=== PATIENT | female | born 1995 | race Caucasian/White ===

== ENCOUNTER 2022-02-26 19:44 | Emergency (ER) | payer OTHER ==
[2022-02-26 19:50] VITALS: BP 114/79; TEMP 100.2; BMI 20.5
[2022-02-26] MEDS ORDERED: ACETAMINOPHEN 500 MG TABLET (FP) PO ONE (22:20)
[2022-02-26] MEDS ORDERED: ACETAMINOPHEN 500 MG TABLET (FP) ONE (22:21)
[2022-02-26] MEDS ORDERED: KETOROLAC TROMETHAMINE 30 MG/1 ML VIAL IVPUSH ONE (22:39)
[2022-02-26] MEDS ORDERED: SODIUM CHLORIDE 0.9% 500 ML INFUS.BAG IV ONE (22:39)
[2022-02-26] MEDS ORDERED: METOCLOPRAMIDE HCL INJECTION 10 MG/2 ML VIAL IVPUSH ONE (22:39)
[2022-02-26] MEDS ORDERED: METOCLOPRAMIDE HCL INJECTION 10 MG/2 ML VIAL ONE (22:47)
[2022-02-26] MEDS ORDERED: KETOROLAC TROMETHAMINE 30 MG/1 ML VIAL ONE (22:47)
[2022-02-27 00:40] VITALS: PULSE 80
== END 2022-02-27 00:31 | disposition home or self-care (01) ==
LOC: JER 19:44
PROC: 3E033GC Introduction of Other Therapeutic Substance into Peripheral Vein, Percutaneous Approach (ICD-10-PCS; principal; 2022-02-26)
PROC: 3E0337Z Introduction of Electrolytic and Water Balance Substance into Peripheral Vein, Percutaneous Approach (ICD-10-PCS; 2022-02-26)
PROC: 3E033GC Introduction of Other Therapeutic Substance into Peripheral Vein, Percutaneous Approach (ICD-10-PCS; 2022-02-26)
DX: R51.9 Headache, unspecified (principal); J06.9 Acute upper respiratory infection, unspecified
CPT/HCPCS: 0241U-QW; 99284-25

== ENCOUNTER 2023-07-26 21:37 | Inpatient (IN) | payer OTHER ==
[2023-07-26 21:44] VITALS: BMI 22.8
[2023-07-26] MEDS ORDERED: SODIUM CHLORIDE 0.9% 500 ML INFUS.BAG IV ONE (23:11)
[2023-07-26] MEDS ORDERED: ACETAMINOPHEN 1000 MG/100 ML BAG IVPB ONE (23:11)
[2023-07-27] MEDS ORDERED: valACYclovir HCL 500 MG TABLET (FP) PO ONE (00:35)
[2023-07-27 00:55] LABS: BASO % 0.3 % (0-2.0); EOS % 0.1 % (0-4.5); LYMPH % 8.8 % (8-40); MCH 27.5 pg (25.7-33.7); MCHC 34.3 g/dl (32.0-36.0); MEAN CELL VOLUME 80.1 fl (80-96); MEAN PLT VOLUME 8.9 fl (7.5-11.1); MONO % 6.7 % (3.8-10.2); NEUT % 84.1 % (42.8-82.8); PLATELET COUNT 276 10^3/uL (134-434); RBC 4.74 M/mm3 (3.60-5.2); RDW 13.2 % (11.6-15.6); WHITE BLOOD COUNT 13.2 K/mm3 (4.0-10.0)
[2023-07-27 00:56] LABS: EPI CELLS 5 /uL (0-25.1); HYALINE CASTS 8 /uL (0-3.1); URINE APPEARANCE CLEAR; URINE BACTERIA 2222 /uL (0-1359); URINE BILIRUBIN NEGATIVE (NEGATIVE); URINE COLOR YELLOW; URINE GLUCOSE (UA) NEGATIVE (NEGATIVE); URINE KETONE NEGATIVE (NEGATIVE); URINE LEUK ESTERASE 3+ (NEGATIVE); URINE NITRITE NEGATIVE (NEGATIVE); URINE PROTEIN 1+ (NEGATIVE); URINE RBC 301 /uL (0-23.9); URINE UROBILINOGEN 0.2 mg/dL (0.2-1.0); URINE WBC 987 /uL (0-25.8)
[2023-07-27 01:04] LABS: INR 1.05 (0.83-1.09); PROTHROMBIN TIME (PATIENT) 12.2 SEC (9.7-13.0)
[2023-07-27 01:07] LABS: ACTIVATED PTT 30.3 SECONDS (25.2-36.5)
[2023-07-27 01:12] LABS: POTASSIUM 4.1 mmol/L (3.5-5.1)
[2023-07-27 01:14] LABS: BLOOD UREA NITROGEN 4.3 mg/dL (7-18); CALCIUM 9.1 mg/dL (8.5-10.1); MAGNESIUM 2.1 mg/dL (1.8-2.4)
[2023-07-27 01:15] LABS: ALBUMIN 3.8 g/dl (3.4-5.0)
[2023-07-27] MEDS ORDERED: valACYclovir HCL 500 MG TABLET (FP) ONE (01:15)
[2023-07-27 01:17] LABS: CREATININE 0.6 mg/dL (0.55-1.3)
[2023-07-27 01:19] LABS: BILIRUBIN,TOTAL 0.6 mg/dL (0.2-1); TOT PROT 7.2 g/dl (6.4-8.2)
[2023-07-27] MEDS ORDERED: CEFTRIAXONE 1 GM in DEXTROSE 5%-WATER - 50 ML IVPB ONE (02:33)
[2023-07-27] MEDS ORDERED: CEFTRIAXONE 1 GM/50 ML BAG ONE ×2 (03:24→11:18)
[2023-07-27] MEDS ORDERED: ACETAMINOPHEN 1000 MG/100 ML BAG IVPB PRN (06:49)
[2023-07-27 08:20] LABS: HEMATOCRIT 38.8 % (32.4-45.2); HEMOGLOBIN 13.2 GM/dL (10.7-15.3); MCH 27.6 pg (25.7-33.7); MEAN PLT VOLUME 9.1 fl (7.5-11.1); PLATELET COUNT 263 10^3/uL (134-434); RBC 4.79 M/mm3 (3.60-5.2); RDW 13.3 % (11.6-15.6); WHITE BLOOD COUNT 10.5 K/mm3 (4.0-10.0)
[2023-07-27 09:04] LABS: POTASSIUM 3.9 mmol/L (3.5-5.1)
[2023-07-27 09:05] LABS: CALCIUM 9.1 mg/dL (8.5-10.1)
[2023-07-27 09:06] LABS: BLOOD UREA NITROGEN 3.3 mg/dL (7-18)
[2023-07-27 09:09] LABS: PHOSPHOROUS 3.5 mg/dL (2.5-4.9)
[2023-07-27 09:10] LABS: CREATININE 0.6 mg/dL (0.55-1.3)
[2023-07-27] MEDS ORDERED: metroNIDAZOLE 0.75% TOPICAL GEL 45 GM TUBE TP SCH (10:00)
[2023-07-27] MEDS: valACYclovir HCL 500 MG TABLET (FP) PO SCH ×2 (11:34→22:46)
[2023-07-27] MEDS: ENOXAPARIN NA (PORCINE) 40 MG/0.4 ML DISP.SYRIN SQ SCH (11:34)
[2023-07-27] MEDS: metroNIDAZOLE 250 MG TABLET PO SCH ×2 (11:34→22:45)
[2023-07-27 11:53] LABS: SYPHILIS W/ RPR CONF NON-REACTIVE (NONREACTIVE)
[2023-07-27 12:23] LABS: HIV INTERPRETATION NEGATIVE (NEGATIVE)
[2023-07-27] MEDS: DOXYCYCLINE INJECTION 100 MG in DEXTROSE 5%-WATER 100 ML IVPB SCH (22:47)
[2023-07-28] MEDS ORDERED: CEFTRIAXONE 1 GM in DEXTROSE 5%-WATER - 50 ML IVPB SCH (06:00)
[2023-07-28] MEDS: valACYclovir HCL 500 MG TABLET (FP) PO SCH ×3 (07:06→21:25)
[2023-07-28 09:40] LABS: BASO % 0.3 % (0-2.0); EOS % 0.9 % (0-4.5); HEMATOCRIT 39.9 % (32.4-45.2); HEMOGLOBIN 13.4 GM/dL (10.7-15.3); LYMPH % 23.7 % (8-40); MCH 27.5 pg (25.7-33.7); MCHC 33.7 g/dl (32.0-36.0); MEAN CELL VOLUME 81.7 fl (80-96); MEAN PLT VOLUME 9.1 fl (7.5-11.1); MONO % 10.7 % (3.8-10.2); NEUT % 64.4 % (42.8-82.8); PLATELET COUNT 275 10^3/uL (134-434); RBC 4.88 M/mm3 (3.60-5.2); RDW 13.2 % (11.6-15.6); WHITE BLOOD COUNT 6.8 K/mm3 (4.0-10.0)
[2023-07-28 09:44] LABS: POTASSIUM 4.4 mmol/L (3.5-5.1)
[2023-07-28 09:48] LABS: ALBUMIN 3.6 g/dl (3.4-5.0)
[2023-07-28 09:49] LABS: BLOOD UREA NITROGEN 6.8 mg/dL (7-18); CALCIUM 9.1 mg/dL (8.5-10.1)
[2023-07-28 09:52] LABS: CREATININE 0.6 mg/dL (0.55-1.3)
[2023-07-28 09:53] LABS: BILIRUBIN,TOTAL 0.4 mg/dL (0.2-1); TOT PROT 7.2 g/dl (6.4-8.2)
[2023-07-28] MEDS: metroNIDAZOLE 250 MG TABLET PO SCH ×2 (10:01→21:25)
[2023-07-28] MEDS: DOXYCYCLINE INJECTION 100 MG in DEXTROSE 5%-WATER 100 ML IVPB SCH ×2 (10:01→21:24)
[2023-07-28] MEDS: CEFTRIAXONE 2 GM in DEXTROSE 5%-WATER 100 ML IVPB SCH (10:01)
[2023-07-28] MEDS: ENOXAPARIN NA (PORCINE) 40 MG/0.4 ML DISP.SYRIN SQ SCH ×2 (10:01→10:11)
[2023-07-29] MEDS: valACYclovir HCL 500 MG TABLET (FP) PO SCH ×3 (05:39→22:33)
[2023-07-29 09:36] LABS: BASO % 0.4 % (0-2.0); EOS % 0.7 % (0-4.5); HEMOGLOBIN 14.6 GM/dL (10.7-15.3); LYMPH % 26.4 % (8-40); MCH 28.5 pg (25.7-33.7); MCHC 35.7 g/dl (32.0-36.0); MEAN CELL VOLUME 79.9 fl (80-96); MONO % 8.1 % (3.8-10.2); NEUT % 64.4 % (42.8-82.8); PLATELET COUNT 283 10^3/uL (134-434); RBC 5.13 M/mm3 (3.60-5.2); RDW 13.8 % (11.6-15.6); WHITE BLOOD COUNT 7.5 K/mm3 (4.0-10.0)
[2023-07-29] MEDS: ENOXAPARIN NA (PORCINE) 40 MG/0.4 ML DISP.SYRIN SQ SCH (09:48)
[2023-07-29] MEDS: DOXYCYCLINE INJECTION 100 MG in DEXTROSE 5%-WATER 100 ML IVPB SCH (09:48)
[2023-07-29] MEDS: CEFTRIAXONE 2 GM in DEXTROSE 5%-WATER 100 ML IVPB SCH (09:48)
[2023-07-29] MEDS: metroNIDAZOLE 250 MG TABLET PO SCH ×2 (09:48→22:33)
[2023-07-29 09:56] LABS: POTASSIUM 4.1 mmol/L (3.5-5.1)
[2023-07-29 10:44] LABS: BLOOD UREA NITROGEN 6.8 mg/dL (7-18); CALCIUM 9.5 mg/dL (8.5-10.1); MAGNESIUM 2.1 mg/dL (1.8-2.4)
[2023-07-29 10:45] LABS: ALBUMIN 3.6 g/dl (3.4-5.0)
[2023-07-29 10:48] LABS: CREATININE 0.6 mg/dL (0.55-1.3)
[2023-07-29 10:49] LABS: BILIRUBIN,TOTAL 0.7 mg/dL (0.2-1); TOT PROT 7.3 g/dl (6.4-8.2)
[2023-07-29] MEDS: ERTAPENEM SODIUM 1 GM in SODIUM CHLORIDE 50 ML IVPB SCH (12:30)
[2023-07-30] MEDS: valACYclovir HCL 500 MG TABLET (FP) PO SCH (06:03)
[2023-07-30 09:19] LABS: BASO % 0.4 % (0-2.0); EOS % 0.8 % (0-4.5); HEMATOCRIT 41.5 % (32.4-45.2); HEMOGLOBIN 14.6 GM/dL (10.7-15.3); LYMPH % 26.6 % (8-40); MCH 28.2 pg (25.7-33.7); MCHC 35.2 g/dl (32.0-36.0); MEAN CELL VOLUME 80.2 fl (80-96); MONO % 10.1 % (3.8-10.2); NEUT % 62.1 % (42.8-82.8); PLATELET COUNT 281 10^3/uL (134-434); RBC 5.18 M/mm3 (3.60-5.2); RDW 13.5 % (11.6-15.6); WHITE BLOOD COUNT 7.5 K/mm3 (4.0-10.0)
[2023-07-30 09:46] LABS: POTASSIUM 4.3 mmol/L (3.5-5.1)
[2023-07-30 09:58] LABS: ALBUMIN 3.6 g/dl (3.4-5.0); CALCIUM 9.5 mg/dL (8.5-10.1)
[2023-07-30 09:59] LABS: BLOOD UREA NITROGEN 8.5 mg/dL (7-18); MAGNESIUM 2.1 mg/dL (1.8-2.4)
[2023-07-30 10:01] LABS: CREATININE 0.6 mg/dL (0.55-1.3)
[2023-07-30 10:03] LABS: BILIRUBIN,TOTAL 0.5 mg/dL (0.2-1); TOT PROT 7.2 g/dl (6.4-8.2)
[2023-07-30] MEDS: ERTAPENEM SODIUM 1 GM in SODIUM CHLORIDE 50 ML IVPB SCH (10:57)
[2023-07-30] MEDS: metroNIDAZOLE 250 MG TABLET PO SCH (11:05)
[2023-07-30] MEDS: ENOXAPARIN NA (PORCINE) 40 MG/0.4 ML DISP.SYRIN SQ SCH (11:05)
[2023-07-30 13:14] VITALS: BP 117/71; PULSE 89; RESP 20; TEMP 97.9
== END 2023-07-30 13:18 | disposition home or self-care (01) | DRG 463 ==
LOC: JER 21:37 → JERBED 07-27 03:46 → J5S 07-27 16:49 → J8W 07-27 18:00
PROVIDERS: ADMIT Internal Medicine; ATTEND Internal Medicine
PROC: 02HV33Z Insertion of Infusion Device into Superior Vena Cava, Percutaneous Approach (ICD-10-PCS; principal; 2023-07-30)
PROC: B548ZZA Ultrasonography of Superior Vena Cava, Guidance (ICD-10-PCS; 2023-07-30)
DX: N12 Tubulo-interstitial nephritis, not specified as acute or chronic (principal); A06.9 Amebiasis, unspecified; A60.00 Herpesviral infection of urogenital system, unspecified; N76.0 Acute vaginitis; B96.1 Klebsiella pneumoniae [K. pneumoniae] as the cause of diseases classified elsewhere; Z16.12 Extended spectrum beta lactamase (ESBL) resistance; N39.0 Urinary tract infection, site not specified
CPT/HCPCS: 36415; 36569; 74176-TC; 77001-TC-FY; 80048; 80053; 81003; 83690; 83735; 84100; 84703; 85025; 85027; 85610; 85730; 86780; 87040; 87045; 87046; 87086; 87186; 87389; 87491; 87493; 87591; 87661; 93005; 93010; 97116-GP; 97161-GP; 99285-25; C1751

== ENCOUNTER 2023-07-30 20:01 | Inpatient (IN) | payer OTHER ==
[2023-07-30] MEDS ORDERED: ACETAMINOPHEN 325 MG TABLET (FP) PO ONE (20:53)
[2023-07-30] MEDS ORDERED: ACETAMINOPHEN 325 MG TABLET (FP) ONE (20:59)
[2023-07-31 02:07] LABS: BASO % 0.5 % (0-2.0); EOS % 0.2 % (0-4.5); HEMOGLOBIN 14.7 GM/dL (10.7-15.3); LYMPH % 18.7 % (8-40); MCH 28.1 pg (25.7-33.7); MEAN CELL VOLUME 80.4 fl (80-96); MEAN PLT VOLUME 8.9 fl (7.5-11.1); MONO % 9.2 % (3.8-10.2); NEUT % 71.4 % (42.8-82.8); PLATELET COUNT 304 10^3/uL (134-434); RBC 5.22 M/mm3 (3.60-5.2); RDW 13.6 % (11.6-15.6); WHITE BLOOD COUNT 11.8 K/mm3 (4.0-10.0)
[2023-07-31 02:11] LABS: INR 1.1 (0.83-1.09); PROTHROMBIN TIME (PATIENT) 12.7 SEC (9.7-13.0)
[2023-07-31 02:14] LABS: ACTIVATED PTT 31.4 SECONDS (25.2-36.5)
[2023-07-31 02:30] LABS: POTASSIUM 4.1 mmol/L (3.5-5.1)
[2023-07-31 02:32] LABS: CALCIUM 9.2 mg/dL (8.5-10.1)
[2023-07-31 02:33] LABS: BLOOD UREA NITROGEN 6.1 mg/dL (7-18)
[2023-07-31 02:36] LABS: CREATININE 0.6 mg/dL (0.55-1.3)
[2023-07-31 02:38] LABS: BILIRUBIN,TOTAL 0.4 mg/dL (0.2-1); TOT PROT 7.9 g/dl (6.4-8.2)
[2023-07-31] MEDS ORDERED: UBROGEPANT 50 MG PO PRN (03:32)
[2023-07-31] MEDS: ENOXAPARIN NA (PORCINE) 60 MG/0.6 ML DISP.SYRIN SQ SCH ×3 (03:45→21:56)
[2023-07-31] MEDS ORDERED: valACYclovir HCL 500 MG TABLET (FP) ONE (06:07)
[2023-07-31] MEDS: valACYclovir HCL 500 MG TABLET (FP) PO SCH ×3 (06:11→21:56)
[2023-07-31 07:38] LABS: HEMOGLOBIN 13.9 GM/dL (10.7-15.3); MCH 27.7 pg (25.7-33.7); MCHC 33.9 g/dl (32.0-36.0); MEAN CELL VOLUME 81.6 fl (80-96); MEAN PLT VOLUME 9.2 fl (7.5-11.1); PLATELET COUNT 288 10^3/uL (134-434); RBC 5.03 M/mm3 (3.60-5.2); RDW 13.2 % (11.6-15.6); WHITE BLOOD COUNT 9.8 K/mm3 (4.0-10.0)
[2023-07-31 07:52] LABS: POTASSIUM 4.2 mmol/L (3.5-5.1)
[2023-07-31 07:58] LABS: ALBUMIN 3.7 g/dl (3.4-5.0)
[2023-07-31 07:59] LABS: BLOOD UREA NITROGEN 4.5 mg/dL (7-18)
[2023-07-31 08:01] LABS: CREATININE 0.6 mg/dL (0.55-1.3); PHOSPHOROUS 3.9 mg/dL (2.5-4.9)
[2023-07-31 08:03] LABS: BILIRUBIN,TOTAL 0.6 mg/dL (0.2-1); TOT PROT 7.2 g/dl (6.4-8.2)
[2023-07-31 08:11] LABS: ACTIVATED PTT 42.9 SECONDS (25.2-36.5); INR 1.15 (0.83-1.09); PROTHROMBIN TIME (PATIENT) 13.3 SEC (9.7-13.0)
[2023-07-31] MEDS ORDERED: ACETAMINOPHEN 325 MG TABLET (FP) ONE (08:44)
[2023-07-31] MEDS: ACETAMINOPHEN 325 MG TABLET (FP) PO PRN ×2 (08:50→21:55)
[2023-07-31] MEDS ORDERED: METOCLOPRAMIDE HCL INJECTION 10 MG/2 ML VIAL ONE (09:45)
[2023-07-31] MEDS ORDERED: ERTAPENEM SODIUM 1 GM VIAL ONE (09:45)
[2023-07-31] MEDS: METOCLOPRAMIDE HCL INJECTION 10 MG/2 ML VIAL IVPUSH PRN (09:53)
[2023-07-31 09:57] LABS: PH,URINE 5.5 (5.0-8.0); URINE APPEARANCE CLEAR; URINE BILIRUBIN NEGATIVE (NEGATIVE); URINE COLOR YELLOW; URINE GLUCOSE (UA) NEGATIVE (NEGATIVE); URINE KETONE NEGATIVE (NEGATIVE); URINE NITRITE NEGATIVE (NEGATIVE); URINE PROTEIN NEGATIVE (NEGATIVE); URINE UROBILINOGEN 0.2 mg/dL (0.2-1.0)
[2023-07-31 09:58] LABS: URINE LEUK ESTERASE NEGATIVE (NEGATIVE)
[2023-07-31] MEDS ORDERED: ERTAPENEM SODIUM 1 GM in SODIUM CHLORIDE 50 ML IVPB ONE (10:00)
[2023-07-31] MEDS ORDERED: ASPIRIN 325 MG TABLET PO ONE (11:30)
[2023-07-31] MEDS ORDERED: ATORVASTATIN CA 80 MG TABLET (FP) PO ONE (11:30)
[2023-07-31] MEDS ORDERED: ATORVASTATIN CA 80 MG TABLET (FP) ONE (11:38)
[2023-07-31] MEDS ORDERED: ASPIRIN 325 MG TABLET ONE (11:39)
[2023-07-31 12:41] LABS: CHOLESTEROL 118 mg/dL (50-200)
[2023-07-31 12:42] LABS: LDL CHOLESTEROL (ONLY SJRH) 58 mg/dL (5-100)
[2023-07-31 12:44] LABS: HDL CHOLESTEROL 49 mg/dL (40-60)
[2023-07-31] MEDS ORDERED: RIMEGEPANT SULFATE 75 MG TAB.RAPDIS SL ONE (20:23)
[2023-08-01] MEDS: valACYclovir HCL 500 MG TABLET (FP) PO SCH ×3 (06:08→21:19)
[2023-08-01 07:14] LABS: BASO % 0.5 % (0-2.0); EOS % 0.6 % (0-4.5); HEMATOCRIT 39.7 % (32.4-45.2); HEMOGLOBIN 13.9 GM/dL (10.7-15.3); LYMPH % 31.5 % (8-40); MCH 28.6 pg (25.7-33.7); MCHC 35.1 g/dl (32.0-36.0); MEAN CELL VOLUME 81.4 fl (80-96); MEAN PLT VOLUME 9.2 fl (7.5-11.1); MONO % 9.3 % (3.8-10.2); NEUT % 58.1 % (42.8-82.8); PLATELET COUNT 263 10^3/uL (134-434); RBC 4.87 M/mm3 (3.60-5.2); RDW 13.2 % (11.6-15.6)
[2023-08-01 07:28] LABS: POTASSIUM 4.3 mmol/L (3.5-5.1)
[2023-08-01 07:32] LABS: BLOOD UREA NITROGEN 3.6 mg/dL (7-18); CALCIUM 8.7 mg/dL (8.5-10.1)
[2023-08-01 07:33] LABS: ALBUMIN 3.4 g/dl (3.4-5.0)
[2023-08-01 07:36] LABS: CREATININE 0.6 mg/dL (0.55-1.3)
[2023-08-01 07:37] LABS: BILIRUBIN,TOTAL 0.6 mg/dL (0.2-1); TOT PROT 6.7 g/dl (6.4-8.2)
[2023-08-01] MEDS: METOCLOPRAMIDE HCL INJECTION 10 MG/2 ML VIAL IVPUSH PRN (07:47)
[2023-08-01] MEDS: SODIUM CHLORIDE 1,000 ML IV SCH ×2 (09:55→21:22)
[2023-08-01] MEDS: ERTAPENEM SODIUM 1 GM in SODIUM CHLORIDE 50 ML IVPB SCH (09:56)
[2023-08-01] MEDS: ENOXAPARIN NA (PORCINE) 60 MG/0.6 ML DISP.SYRIN SQ SCH ×2 (09:57→21:19)
[2023-08-01 12:17] LABS: COCAINE, UR NEGATIVE (NEGATIVE)
[2023-08-01 12:18] LABS: PHENCYCLIDINE,URINE NEGATIVE (NEGATIVE)
[2023-08-01 12:19] LABS: URINE BENZODIAZEPINES NEGATIVE (NEGATIVE)
[2023-08-01 12:20] LABS: METHADONE, UR NEGATIVE (NEGATIVE); OPIATES, URI NEGATIVE (NEGATIVE); URINE BARBITURATES NEGATIVE (NEGATIVE)
[2023-08-01 12:28] LABS: URINE AMPHETAMINES NEGATIVE (NEGATIVE)
[2023-08-02 01:33] VITALS: RESP 20
[2023-08-02] MEDS: valACYclovir HCL 500 MG TABLET (FP) PO SCH ×3 (06:19→22:09)
[2023-08-02] MEDS: ERTAPENEM SODIUM 1 GM in SODIUM CHLORIDE 50 ML IVPB SCH (09:26)
[2023-08-02] MEDS: ENOXAPARIN NA (PORCINE) 60 MG/0.6 ML DISP.SYRIN SQ SCH ×2 (09:26→22:09)
[2023-08-02] MEDS: SODIUM CHLORIDE 1,000 ML IV SCH (09:28)
[2023-08-02] MEDS: ACETAMINOPHEN 325 MG TABLET (FP) PO PRN (10:10)
[2023-08-02 11:48] VITALS: BMI 23.6
[2023-08-03 07:53] LABS: HEMATOCRIT 39.5 % (32.4-45.2); HEMOGLOBIN 13.7 GM/dL (10.7-15.3); MCH 28.2 pg (25.7-33.7); MCHC 34.7 g/dl (32.0-36.0); MEAN CELL VOLUME 81.4 fl (80-96); MEAN PLT VOLUME 9.3 fl (7.5-11.1); PLATELET COUNT 263 10^3/uL (134-434); RBC 4.86 M/mm3 (3.60-5.2); RDW 13.4 % (11.6-15.6); WHITE BLOOD COUNT 7.9 K/mm3 (4.0-10.0)
[2023-08-03 08:05] LABS: INR 1.13 (0.83-1.09); PROTHROMBIN TIME (PATIENT) 13.1 SEC (9.7-13.0)
[2023-08-03 08:21] LABS: POTASSIUM 4.3 mmol/L (3.5-5.1)
[2023-08-03 08:22] LABS: CALCIUM 8.7 mg/dL (8.5-10.1)
[2023-08-03 08:23] LABS: BLOOD UREA NITROGEN 6.1 mg/dL (7-18)
[2023-08-03 08:26] LABS: CREATININE 0.6 mg/dL (0.55-1.3)
[2023-08-03] MEDS ORDERED: ENOXAPARIN NA (PORCINE) 60 MG/0.6 ML DISP.SYRIN SQ SCH (10:00)
[2023-08-03] MEDS ORDERED: APIXABAN 5 MG TABLET PO SCH (10:15)
[2023-08-03] MEDS ORDERED: SODIUM CHLORIDE 0.45% 1,000 ML IV SCH (10:30)
[2023-08-03] MEDS: ERTAPENEM SODIUM 1 GM in SODIUM CHLORIDE 50 ML IVPB SCH (10:33)
[2023-08-03 18:30] VITALS: BP 111/51; PULSE 89; TEMP 98.7
== END 2023-08-03 19:33 | disposition home or self-care (01) | DRG 197 ==
LOC: JER 20:01 → JERBED 07-31 00:22 → OBSVTOIN 07-31 00:22 → J4W 07-31 12:31
PROVIDERS: ADMIT Internal Medicine; ATTEND Internal Medicine
PROC: 05PYX3Z Removal of Infusion Device from Upper Vein, External Approach (ICD-10-PCS; principal; 2023-08-02)
DX: I82.C11 Acute embolism and thrombosis of right internal jugular vein (principal); A60.00 Herpesviral infection of urogenital system, unspecified; E04.1 Nontoxic single thyroid nodule; G43.909 Migraine, unspecified, not intractable, without status migrainosus; N83.291 Other ovarian cyst, right side; N12 Tubulo-interstitial nephritis, not specified as acute or chronic
CPT/HCPCS: 36415; 70450-TC; 70498-TC; 70551-TC; 71275-TC; 80048; 80053; 80061; 80307; 81003; 83036; 83735; 84100; 84439; 84443; 85025; 85027; 85610; 85730; 86038; 86780; 93005; 93010; 93971; 99285-25; Q9967